=== PATIENT | male | born 1950 | race Two or more races ===

== ENCOUNTER 2025-01-16 08:52 | Outpatient (AMB) | payer MEDICAID, SELFPAY ==
[2025-01-16 09:10] VITALS: BP 122/75; PULSE 64; RESP 18; TEMP 36.3; O2SAT 96; BMI 28.7
--- NOTE | 2025-01-16 09:10 | ORTHONT_ITS ---
Vital signs 01/16/25 09:10 Height 1.6 m Height Method Stated Weight 73.567 kg Weight Measurement Method Standing Scale BMI 28.7 BP 122/75 Blood Pressure Source Automatic Cuff Blood Pressure Location Left Upper Arm Position Sitting Respiration 18 Pulse 64 Pulse Source Monitor Temp 97.4 F Temp Source Temporal Artery Scan Pulse Oximetry (%) 96 Oxygen Delivery Method Room Air Med/Allergies Allergies & Medications Allergies No Known Allergies Allergy (Verified 01/16/25 09:11) Medication Reconciliation atorvastatin 10 mg tablet 10 mg PO QDAY 01/16/25 [History Confirmed 01/16/25] empagliflozin 10 mg tablet (Jardiance) 10 mg PO QAM 01/16/25 [History Confirmed 01/16/25] ibuprofen 600 mg tablet 600 mg PO Q8H PRN 01/16/25 [History Confirmed 01/16/25] metformin 500 mg tablet 500 mg PO QDAY 01/16/25 [History Confirmed 01/16/25] sitagliptin phosphate 50 mg-metformin 1,000 mg tablet (Janumet) 1 tab PO BID 01/16/25 [History Confirmed 01/16/25] Exam Exam Patient is in no acute distress and is cooperative with the examination today. Breathing is nonlabored. In no respiratory distress. Bilateral extremities were evaluated and demonstrates sensation intact to light touch. Palpable pedal pulses are present. No significant edema is present. Bilateral hips were examined. The patient has no pain with log roll of the hips. Internal rotation to 30 degrees and external rotation to 30 degrees is painless. Negative FADIR. The left knee was examined. The left knee is in varus alignment. Range of motion from 0-115 degrees. He has a long atnerior incision. Knee is stable to varus and valgus as well as AP translation with <5mm. Patient has a negative McMurrays. There is no pain with patellofemoral compression and no crepitus noted. The knee is tender to palpation medially. The right knee was also examined. The right knee is in varus alignment. Range of motion from 0-120 degrees. Knee is stable to varus and valgus as well as AP translation with <5mm. Patient has a negative McMurrays. There is no pain with patellofemoral compression and no crepitus noted. The knee is tender to palpation medially Assessment and Plan Problem List (1) Degenerative arthritis of knee, bilateral: Status: Acute Plan: Patient is a pleasant 73-year-old male with bilateral knee pain and bilateral knee arthritis. He has had a history of a complex left knee complication from arthroscopic surgery and required vascular surgery. His A1c is currently 9 and is under control. This will have to be optimized if we were to do any kind of surgery in the future. We will see him back after his x-rays are done Advanced Care Planning Discussion Advance care planning discussed with:: patient and child Office Procedures GNS Level of Care Nursing/Assessment Patient Status: Initial/New Patient Nursing Assessment/Reassesment: Medication Reconciliation, Update PMH in EMR and Vital Signs Coordination of Care: Complex Care and Chronic Disease 1-5, Education Complex Pt/Fam, Consent,records obtained, informed consent, 1 Ins Authorization, Lab and Imaging orders, Results/Orders obtained and Staff clarify orders Special Needs: Language special needs New Patient Charge New Patient Point Assignment: 1124 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 Level 4 (2421-3502) MA Intake Visit Data Collection New Patient or Established: New Patient (never been to [facility]) Reason for Visit:: BL KNEE PAIN Seen by Clinical Staff ONLY (RN/MA): No Financial Cost Analyst Required: Yes PCP or OBGYN visit in last 3 months: Yes Hx Now: No Do You Feel Safe at Home: Yes Authorities Contacted: N/A Questionairres Past Medical History Past Medical History Have you ever been diagnosed with any of the following: Respiratory Problems Smoking: No Smoking Cessation Counseling: No Smoking Exposure: No Endocrine Problems Diabetes Mellitus Type 2: Yes (A1C: 9) Surgical History Total Knee Replacement: Yes (LEFT 14 YEARS AGO L.A) Subjective Visit Visit for: new patient and knee (BILATERAL) Immunization / Flu Flu Vaccine in the Last 12 Months: Yes Flu Vaccine Exclusion Criteria: Already Received History of Present Illness Chief complaint: BILATERAL KNEE PAIN Date of injury / onset of symptoms: 6 YEARS AGO Date of 1st surgery (if applicable): 2010 LEFT TKA IN [place]-WORK INJURY Patient is a 74-year-old male with bilateral knee pain. He had a left knee arthroscopic surgery which was complicated by a popliteal injury which quired a vascular reconstruction. He has skin grafts on the posterior aspect of his knee on the left side. He reports the right knee has been bothering him for quite a while. He is using a cane. He had injections in the right knee in the past. Has also tried anti-inflammatories in the past. He has a severe limp when he walks. He reports he has a lot of difficulty with extension Personal History Occupation: RETIRED Red flag PMH: other (specify) (DIABETIC) Pain Pain level (0-10): 8 Pain duration: ALL DAY Pain location: anterior (RIGHT) and posterior (LEFT) Pain quality: sharp, dull and aching Pain timing: increases with activity and stairs Associated signs & symptoms: none Ambulatory data Ambulatory device: cane Treatments Number of previous injections: 3 (LAST 1 YEAR) Improvement with previous injections: Yes Improvement with PT: No Improvement with NSAIDS: no (IBUROFEN) Review of Systems Review of Systems: All systems negative unless otherwise noted in HPI.
--- NOTE | 2025-01-16 09:34 | XR_ITS ---
Examination: Bilateral AP knees 2 views Right lateral knee left lateral knee 2 views Bilateral axial knees single view Technique: Bilateral AP knees standing bilateral PA knees standing flexion single view Standing right lateral knee left lateral knee 2 views Bilateral axial knees single view Date and time: January 08, 2025 0945 hrs. Indications: Bilateral knee pain 14 years Findings: Moderate osteopenia. Severe narrowing medial joint space right knee Advanced osteoarthritis right patellofemoral lateral joint spaces Total left knee arthroplasty. Satisfactory alignment No loosening of the prosthetic components Impression: Advanced right knee tricompartment osteoarthritis including severe narrowing medial joint space
== END 2025-01-16 09:39 | disposition home or self-care (01) ==
LOC: HODSRG 08:52
PROVIDERS: PCP Physician Assistant; Referring Provider Physician Assistant; Supervising Provider Orthopaedic Surgery Adult Reconstructive Orthopaedic Surgery; Visit Provider Orthopaedic Surgery Adult Reconstructive Orthopaedic Surgery
DX: M17.0 Bilateral primary osteoarthritis of knee (principal); M25.562 Pain in left knee; M25.561 Pain in right knee; E11.9 Type 2 diabetes mellitus without complications
CPT/HCPCS: 73564; 99204; G0463

== ENCOUNTER 2025-01-30 08:34 | Outpatient (AMB) | payer MEDICAID, SELFPAY ==
--- NOTE | 2025-01-30 09:12 | ORTHONT_ITS ---
Vital signs 01/30/25 09:13 Height 1.6 m Height Method Measured Weight 73.652 kg Weight Measurement Method Standing Scale BMI 28.8 BP 123/73 Blood Pressure Source Automatic Cuff Blood Pressure Location Left Upper Arm Position Sitting Respiration 18 Pulse 65 Pulse Source Monitor Temp 97.7 F Temp Source Temporal Artery Scan Pulse Oximetry (%) 97 Oxygen Delivery Method Room Air Med/Allergies Allergies & Medications Allergies No Known Allergies Allergy (Verified 01/30/25 09:14) Medication Reconciliation atorvastatin 10 mg tablet 10 mg PO QDAY 01/16/25 [History Confirmed 01/30/25] empagliflozin 10 mg tablet (Jardiance) 10 mg PO QAM 01/16/25 [History Confirmed 01/30/25] ibuprofen 600 mg tablet 600 mg PO Q8H PRN 01/16/25 [History Confirmed 01/30/25] metformin 500 mg tablet 500 mg PO QDAY 01/16/25 [History Confirmed 01/30/25] sitagliptin phosphate 50 mg-metformin 1,000 mg tablet (Janumet) 1 tab PO BID 01/16/25 [History Confirmed 01/30/25] Exam Exam Patient is in no acute distress and is cooperative with the examination today. Breathing is nonlabored. In no respiratory distress. Bilateral extremities were evaluated and demonstrates sensation intact to light touch. Palpable pedal pulses are present. No significant edema is present. Bilateral hips were examined. The patient has no pain with log roll of the hips. Internal rotation to 30 degrees and external rotation to 30 degrees is painless. Negative FADIR. The left knee was examined. The left knee is in varus alignment. Range of motion from 15-115 degrees. He has a long atnerior incision. There is extensor lag of the right knee patella . knee is stable to varus and valgus as well as AP translation with <5mm. Patient has a negative McMurrays. There is no pain with patellofemoral compression and no crepitus noted. The knee is tender to palpation medially. The right knee was also examined. The right knee is in varus alignment. Range of motion from 0-120 degrees. Knee is stable to varus and valgus as well as AP translation with <5mm. Patient has a negative McMurrays. There is no pain with patellofemoral compression and no crepitus noted. The knee is tender to palpation medially On x-rays, patient has a left total knee replacement with a ruptured patella tendon and patella dana. On further history, he reports that this has been going on for 2 years. The patient also has significant right knee arthritis with complete obliteration of the medial joint space Assessment and Plan Problem List (1) Degenerative arthritis of knee, bilateral: Status: Acute Plan: Patient is a pleasant 73-year-old male with bilateral knee pain and bilateral knee arthritis. He has had a history of a complex left knee complication from arthroscopic surgery and required vascular surgery. His A1c is currently 9 and is under control. T he understands that the cortisone injection will increase his blood sugars. He would like cortisone injection today Recommend knee cortisone injection as patient would like to proceed with conservative treatment at this time. The risks and benefits of the procedure were reviewed with the patient and patient gave verbal consent to continue with the procedure. Procedure: performed by Dr. Aly Using sterile technique the Right knee was thoroughly prepped with alcohol, and approximately 1 cc of Depo-Medrol 80mg/mL and 4 cc of 0.2% ropivacaine was injected without resistance into the medial tibial femoral joint space. The patient tolerated the procedure. Advanced Care Planning Discussion Advance care planning discussed with:: patient and child Office Procedures GNS Level of Care Nursing/Assessment Patient Status: Established Patient Nursing Assessment/Reassesment: Medication Reconciliation, Orthostatic Vitals, Update PMH in EMR and Vital Signs Coordination of Care: Complex Care and Chronic Disease 1-5, Education Complex Pt/Fam, Consent,records obtained, informed consent, Results/Orders obtained and Staff clarify orders Special Needs: Language special needs Established Patient Charge Established Patient Point Assignment: 105 Established Patient Point Charge: EP Level 3 (80-115) Surgical Proc/IM SQ injection Major Surgical Procedure: Yes (RIGHT KNEE INJECTION ) Medication Given Medication Given Medication Given: Yes Documented Dose Given: 1 Route: Infiitration Medication Given Medication Given Medication Given: Yes Documented Dose Given: 4 Route: Infiitration Office Meds methylprednisolone acetate 80 mg/mL suspension for injection Performing Provider: Paul Aly MD Performing Location: [facility] Administered by: Paul Aly MD on 01/30/25 09:28 Dose Route Admin Location Dispensed Lot Number Expiration Date Pack age [facility] Lead Neurodiagnostic Technologist 80 mg intra-articular RIGHT KNEE 1 mL [id number] 09/19/26 [address]- 1 [id number] [employer] ropivacaine (PF) 2 mg/mL (0.2 %) injection solution Performing Provider: Paul Aly MD Performing Location: [facility] Administered by: Paul Aly MD on 01/30/25 09:28 Dose Route Admin Location Dispensed Lot Number Expiration Date Pack age [facility] [place] Lead Neurodiagnostic Technologist 20 mL Infiltration RIGHT KNEE 20 mL [id number] 05/22/27 67075-607-62 [id number] [facility] Intake Visit Data Collection New Patient or Established: Established Patient (seen at [facility] within 3 years) Reason for Visit:: BL KNEE PAIN Seen by Clinical Staff ONLY (RN/MA): No Tank Shop Supervisor Required: Yes PCP or OBGYN visit in last 3 months: Yes Hx Now: No Do You Feel Safe at Home: Yes Authorities Contacted: N/A Questionairres Past Medical History Past Medical History Have you ever been diagnosed with any of the following: Respiratory Problems Smoking: No Smoking Cessation Counseling: No Smoking Exposure: No Endocrine Problems Diabetes Mellitus Type 2: Yes (A1C: 9) Surgical History Total Knee Replacement: Yes (LEFT 14 YEARS AGO L.A) Subjective Visit Visit for: follow up visit and knee Immunization / Flu Flu Vaccine in the Last 12 Months: Yes Flu Vaccine Exclusion Criteria: Already Received History of Present Illness Chief complaint: BILATERAL KNEE PAIN Date of injury / onset of symptoms: 6 YEARS AGO Date of 1st surgery (if applicable): 2010 LEFT TKA IN [place]-WORK INJURY Patient is a 74-year-old male with bilateral knee pain. He had a left knee arthroscopic surgery which was complicated by a popliteal injury which quired a vascular reconstruction. He has skin grafts on the posterior aspect of his knee on the left side. He reports the right knee has been bothering him for quite a while. He is using a cane. He had injections in the right knee in the past. Has also tried anti-inflammatories in the past. He has a severe limp when he walks. He reports he has a lot of difficulty with extension Personal History Occupation: RETIRED Red flag PMH: other (specify) (DIABETIC) Pain Pain level (0-10): 8 Pain duration: ALL DAY Pain location: anterior (RIGHT) and posterior (LEFT) Pain quality: sharp, dull and aching Pain timing: increases with activity and stairs Associated signs & symptoms: none Ambulatory data Ambulatory device: cane Treatments Number of previous injections: 3 (LAST 1 YEAR) Improvement with previous injections: Yes Improvement with PT: No Improvement with NSAIDS: no (IBUROFEN) Review of Systems Review of Systems: All systems negative unless otherwise noted in HPI.
[2025-01-30 09:13] VITALS: BP 123/73; PULSE 65; RESP 18; TEMP 36.5; O2SAT 97; BMI 28.8
== END 2025-01-30 09:27 | disposition home or self-care (01) ==
LOC: HODSRG 08:34
PROVIDERS: PCP Physician Assistant; Referring Provider Physician Assistant; Supervising Provider Orthopaedic Surgery Adult Reconstructive Orthopaedic Surgery; Visit Provider Orthopaedic Surgery Adult Reconstructive Orthopaedic Surgery
DX: M17.0 Bilateral primary osteoarthritis of knee (principal); M25.561 Pain in right knee; M25.562 Pain in left knee; E11.9 Type 2 diabetes mellitus without complications
CPT/HCPCS: 20610; 99213; J1010; J2795; G0463

== ENCOUNTER 2025-05-06 10:23 | Outpatient (AMB) | payer MEDICAID, SELFPAY ==
--- NOTE | 2025-05-06 10:32 | ORTHONT_ITS ---
Vital signs 05/06/25 10:45 Height 1.6 m Height Method Stated Weight 74.843 kg Weight Measurement Method Standing Scale BMI 29.2 BP 119/73 Blood Pressure Source Automatic Cuff Blood Pressure Location Left Upper Arm Position Sitting Respiration 19 Pulse 78 Pulse Source Monitor Temp 97.6 F Temp Source Temporal Artery Scan Pulse Oximetry (%) 96 Oxygen Delivery Method Room Air Med/Allergies Allergies & Medications Allergies No Known Allergies Allergy (Verified 05/06/25 10:45) Medication Reconciliation atorvastatin 10 mg tablet 10 mg PO QDAY 01/16/25 [History Confirmed 05/06/25] empagliflozin 10 mg tablet (Jardiance) 10 mg PO QAM 01/16/25 [History Confirmed 05/06/25] ibuprofen 600 mg tablet 600 mg PO Q8H PRN 01/16/25 [History Confirmed 05/06/25] metformin 500 mg tablet 500 mg PO QDAY 01/16/25 [History Confirmed 05/06/25] sitagliptin phosphate 50 mg-metformin 1,000 mg tablet (Janumet) 1 tab PO BID 01/16/25 [History Confirmed 05/06/25] Exam Exam Patient is in no acute distress and is cooperative with the examination today. Breathing is nonlabored. In no respiratory distress. Bilateral extremities were evaluated and demonstrates sensation intact to light touch. Palpable pedal pulses are present. No significant edema is present. Bilateral hips were examined. The patient has no pain with log roll of the hips. Internal rotation to 30 degrees and external rotation to 30 degrees is painless. Negative FADIR. The left knee was examined. The left knee is in varus alignment. Range of motion from 15-115 degrees. He has a long atnerior incision. There is extensor lag of the right knee patella . knee is stable to varus and valgus as well as AP translation with <5mm. Patient has a negative McMurrays. There is no pain with patellofemoral compression and no crepitus noted. The knee is tender to palpation medially. The right knee was also examined. The right knee is in varus alignment. Range of motion from 0-120 degrees. Knee is stable to varus and valgus as well as AP translation with <5mm. Patient has a negative McMurrays. There is no pain with patellofemoral compression and no crepitus noted. The knee is tender to palpation medially On x-rays, patient has a left total knee replacement with a ruptured patella tendon and patella dana. On further history, he reports that this has been going on for 2 years. The patient also has significant right knee arthritis with complete obliteration of the medial joint space Assessment and Plan Problem List (1) Degenerative arthritis of knee, bilateral: Status: Acute Plan: Patient is a pleasant 73-year-old male with bilateral knee pain and bilateral knee arthritis. He has had a history of a complex left knee complication from arthroscopic surgery and required vascular surgery. His A1c is currently 9 and is under control. T he understands that the cortisone injection will increase his blood sugars. He would like cortisone injection today Recommend knee cortisone injection as patient would like to proceed with conservative treatment at this time. The risks and benefits of the procedure were reviewed with the patient and patient gave verbal consent to continue with the procedure. Procedure: performed by Dr. Aly Using sterile technique the Right knee was thoroughly prepped with alcohol, and approximately 1 cc of Depo-Medrol 80mg/mL and 4 cc of 0.2% ropivacaine was injected without resistance into the medial tibial femoral joint space. The patient tolerated the procedure. Advanced Care Planning Discussion Advance care planning discussed with:: patient and child Office Procedures GNS Level of Care Nursing/Assessment Patient Status: Established Patient Nursing Assessment/Reassesment: Medication Reconciliation, Update PMH in EMR and Vital Signs Coordination of Care: Complex Care and Chronic Disease 1-5, Education Complex Pt/Fam, Consent,records obtained, informed consent, Results/Orders obtained and Staff clarify orders Special Needs: Language special needs Established Patient Charge Established Patient Point Assignment: 95 Established Patient Point Charge: EP Level 3 (80-115) Surgical Proc/IM SQ injection Minor Surgical Procedure: Yes (RIGHT KNEE INJECTION) Medication Given Medication Given Medication Given: Yes Documented Dose Given: 1 Route: Infiitration Medication Given Medication Given Medication Given: Yes Documented Dose Given: 4 Route: Infiitration Office Meds methylprednisolone acetate 80 mg/mL suspension for injection Performing Provider: Paul Aly MD Performing Location: [facility] Administered by: Paul Aly MD on 05/06/25 10:54 Dose Route Admin Location Dispensed Lot Number Expiration Date Pack age [facility] Courier Delivery Driver 80 mg intra-articular 1 mL [id number] 01/18/27 [address]-7 [id number] [employer] ropivacaine (PF) 2 mg/mL (0.2 %) injection solution Performing Provider: Paul Aly MD Performing Location: [facility] Administered by: Paul Aly MD on 05/06/25 10:54 Dose Route Admin Location Dispensed Lot Number Expiration Date Pack age [facility] [place] Courier Delivery Driver 20 mL Infiltration 20 mL [id number] 06/20/27 10072-257-30 [id number] [facility] Intake Visit Data Collection New Patient or Established: Established Patient (seen at [facility] within 3 years) Reason for Visit:: 3MTH KNEE INJ Seen by Clinical Staff ONLY (RN/MA): No Pbx Mechanic Required: Yes PCP or OBGYN visit in last 3 months: Yes Hx Now: No Do You Feel Safe at Home: Yes Authorities Contacted: N/A Questionairres Past Medical History Past Medical History Have you ever been diagnosed with any of the following: Respiratory Problems Smoking: No Smoking Cessation Counseling: No Smoking Exposure: No Endocrine Problems Diabetes Mellitus Type 2: Yes (A1C: 9) Surgical History Total Knee Replacement: Yes (LEFT 14 YEARS AGO L.A) Subjective Visit Visit for: follow up visit and knee Immunization / Flu Flu Vaccine in the Last 12 Months: Yes Flu Vaccine Exclusion Criteria: Already Received History of Present Illness Chief complaint: BILATERAL KNEE PAIN Date of injury / onset of symptoms: 6 YEARS AGO Date of 1st surgery (if applicable): 2010 LEFT TKA IN [place]WORK INJURY Patient is a 74-year-old male with bilateral knee pain. He had a left knee arthroscopic surgery which was complicated by a popliteal injury which quired a vascular reconstruction. He has skin grafts on the posterior aspect of his knee on the left side. He reports the right knee has been bothering him for quite a while. He is using a cane. He had injections in the right knee in the past. Has also tried anti-inflammatories in the past. He has a severe limp when he walks. He reports he has a lot of difficulty with extension Personal History Occupation: RETIRED Red flag PMH: other (specify) (DIABETIC) Pain Pain level (0-10): 8 Pain duration: ALL DAY Pain location: anterior (RIGHT) and posterior (LEFT) Pain quality: sharp, dull and aching Pain timing: increases with activity and stairs Associated signs & symptoms: none Ambulatory data Ambulatory device: cane Treatments Number of previous injections: 3 (LAST 1 YEAR) Improvement with previous injections: Yes Improvement with PT: No Improvement with NSAIDS: no (IBUROFEN) Review of Systems Review of Systems: All systems negative unless otherwise noted in HPI.
[2025-05-06 10:45] VITALS: BP 119/73; PULSE 78; RESP 19; TEMP 36.4; O2SAT 96; BMI 29.2
== END 2025-05-06 10:46 | disposition home or self-care (01) ==
LOC: HODSRG 10:23
PROVIDERS: PCP Physician Assistant; Referring Provider Physician Assistant; Supervising Provider Orthopaedic Surgery Adult Reconstructive Orthopaedic Surgery; Visit Provider Orthopaedic Surgery Adult Reconstructive Orthopaedic Surgery
DX: M17.0 Bilateral primary osteoarthritis of knee (principal)
CPT/HCPCS: 20610; 99213; J1010; J2795; G0463